=== PATIENT | male | born 1950 | race African-American/Black ===

== ENCOUNTER → 2017-07-26 | Outpatient (CLI) | payer BC ==
--- NOTE | 2017-07-26 18:09 | Diagnostic Imaging Report ---
PROCEDURE:X-RAY RIGHT ANKLE, COMPLETE INDICATION:Ankle pain COMPARISON:None. FINDINGS: Irregularity of the medial malleolus may suggest remote trauma associated with secondary osteoarthrosis of the tibiotalar joint. There is joint space narrowing of the tibiotalar joint with subchondral sclerosis and osteophytosis. A well corticated density anterior to the distal tibia on lateral view is not definitively seen on AP or oblique views and may represent an remote fracture fragment. A 0.6 cm lucency is seen over the lateral talus which may represent an osteochondral lesion or subchondral cyst. Mild soft tissue swelling of the ankle. CONCLUSION: 1. Findings suggestive of remote trauma to the ankle with secondary osteoarthritic changes of the tibiotalar joint. 2. Focal lucency of the lateral talar dome may represent an osteochondral lesion or subchondral cyst. Dictated by: Vikash Fernández M.D. on 07/26/2017 at 18:10 Electronically approved by: Vikash Fernández M.D. on 07/26/2017 at 18:10
== END ==
LOC: RAD 16:34
PROVIDERS: ATTEND Family Medicine
DX: M25.571 Pain in right ankle and joints of right foot (principal)

== ENCOUNTER → 2017-08-09 | Outpatient (CLI) | payer BC ==
--- NOTE | 2017-08-11 07:28 | Diagnostic Imaging Report ---
TECHNIQUE: Magnetic resonance imaging of the RIGHT ANKLE was performed WITHOUT injected contrast. COMPARISON: None available. HISTORY: Chronic ankle pain FINDINGS: LIGAMENTS: Medial Complex: Scarring of the deltoid ligament. Lateral Complex: Scarring of the inferior tibiofibular ligaments, anterior talofibular ligament, and calcaneofibular ligament. TENDONS: Medial: Posterior tibial and flexor tendons is intact. Lateral: Peroneal tendons intact. Anterior: Anterior tibial and extensor tendons intact. Achilles: Achilles tendon intact. BONES: Remote healed fracture of the fibula with cystic change and edema No acute fracture or osteonecrosis. JOINTS: Cartilage: Osteochondral lesion of the lateral talar dome measuring approximately 1.5 x 1 cm at the talar dome with subchondral edema and cystic change. Overlying cartilage loss. Osteophytosis of the ankle joint. Additional multifocal degenerative arthrosis most prominent at the talonavicular joint and subtalar joint. Other: Fluid within the joints is within physiologic limits. SOFT TISSUES: Otherwise, unremarkable. IMPRESSION: Remote ankle injury: * Scarring of the deltoid and lateral ankle ligaments. * Talar dome osteochondral lesion with edema and cystic change. No unstable fragment. * Healed fracture of the distal fibula with cystic change and edema. Ankle and hindfoot degenerative arthrosis. Signed by: Dr. William Ayers M.D. on 08/11/2017 7:24 AM
== END ==
LOC: MRI 08:29
PROVIDERS: ATTEND Family Medicine
DX: M25.571 Pain in right ankle and joints of right foot (principal)